=== PATIENT | male | born 1935 | race Caucasian/White ===

== ENCOUNTER 2019-02-02 21:01 | Emergency (ER) | payer MEDICARE | END 2019-02-02 22:37 | disposition home or self-care (01) | LOC: ERS 21:01 | DX: S39.012A Strain of muscle, fascia and tendon of lower back, initial encounter (principal); E11.9 Type 2 diabetes mellitus without complications; I11.0 Hypertensive heart disease with heart failure; I50.9 Heart failure, unspecified; K21.9 Gastro-esophageal reflux disease without esophagitis; Z87.891 Personal history of nicotine dependence; X50.1XXA Overexertion from prolonged static or awkward postures, initial encounter | CPT/HCPCS: 99283 ==